=== PATIENT | female | born 1975 | race Caucasian/White ===

== ENCOUNTER 2016-07-25 17:34 | Emergency (ER) ==
[2016-07-25] MEDS ORDERED: XYLOCAINE-MPF 1% INJ ONE (21:46)
[2016-07-25] MEDS ORDERED: BOOSTRIX VACCINE IM ONE (21:46)
--- NOTE | 2016-07-25 21:54 | PROVIDER DOCUMENTATION ---
HPI-Rash/Wound/ReCheck - General Chief Complaint: Laceration[s] Stated Complaint: CUT FINGER Time Seen by Provider: 07/25/16 21:17 Source: patient Allergies/Adverse Reactions: Allergies Allergy/AdvReac Type Severity Reaction Status Date / Time No Known Allergies Allergy Verified 07/25/16 17:59 - History of Present Illness-Dermatology Nature of Presenting Problem: 41 y/o WF c/o laceration to L middle digit x 4 hours. Pt states she was preparing dinner when she accidentally cut the palmar aspect of her L middle digit at the middle phalanx. States bleeding controlled. No numbness/tingling or loss of motor function. Unknown when last tetanus. Review of Systems - Adult - REVIEW OF SYSTEMS - ADULT Constitutional: reports: no symptoms reported. denies: chills, fever Eyes: reports: no symptoms reported. denies: blurred vision, double vision Ears, Nose, Mouth & Throat: reports: no symptoms reported. denies: ear pain, nose pain Cardiovascular: reports: no symptoms reported. denies: chest pain, palpitations Respiratory: reports: no symptoms reported. denies: dyspnea on exertion, shortness of breath Gastrointestinal: reports: no symptoms reported. denies: abdominal pain, nausea , vomiting Genitourinary: reports: no symptoms reported. denies: dysuria, frequency Musculoskeletal: reports: no symptoms reported. denies: joint pain, joint swelling Integumentary: reports: see HPI, other. denies: nail changes, rash Neurological: reports: no symptoms reported. denies: numbness, paresthesia Psychiatric: reports: no symptoms reported Endocrine: reports: no symptoms reported. denies: cold intolerance, heat intolerance Hematologic/Lymphatic: reports: no symptoms reported. denies: easy bruising, prolonged bleeding Allergic/Immunologic: reports: no symptoms reported All Other Systems: Reviewed and Negative Past History - Adult - PAST MEDICAL HISTORY-ADULT Review of Records: reports: Nursing Assessment Review, Medications Reviewed - SOCIAL HISTORY Smoking: cigarettes, less than 1 pack/day Provider spent 3-5 mins advising pt. on dangers of tobacco.: Discussed manners to quit use, and f/u contacts for add'l counseling. Physical Exam-General - PHYSICAL EXAM-ADULT Initial Vital Signs Reviewed: Yes - CONSTITUTIONAL General Appearance: alert, mild distress - EYES Eyes: pink conjunctivae - HEAD, EARS, NOSE, MOUTH & THROAT HENMT: normocephalic/atraumatic - NECK Neck: normal inspection - RESPIRATORY Respiratory: no respiratory distress - CARDIOVASCULAR Cardiovascular: normal peripheral pulses, regular rate, rhythm - MUSCULOSKELETAL Extremity: normal range of motion, normal gait, normal capillary refill. negative: abnormal NV exam, pulse deficit - SKIN Integumentary: normal color, normal turgor, warm/dry, laceration(s) (1.5 cm to palmar aspect of L middle digit, distal phalanx) - NEUROLOGIC Neurologic: negative: aphasia, focal weakness, motor weakness, sensory deficit - PSYCHIATRIC Psych/Mental Status: normal mood/affect, normal thought content, normal thought process, oriented x 3 Progress - PLAN OF CARE/RESULTS Progress/Plan/Lab Results: Orders Category Date Time Status Laceration Set up DIRECTED Care 07/25/16 21:46 Active Diph,Pertuss(Acell),Tet Vac/Pf [Boostrix Vaccine] Med 07/25/16 21:46 Discontinued 0.5 ml IM .ONCE ONE Lidocaine 1% Pf [Xylocaine-Mpf 1%] Med 07/25/16 21:46 Discontinued 5 ml INJ NOW ONE Vital Signs Temp Pulse Resp BP Pulse Ox 07/25/16 23:02 112/64 07/25/16 22:50 98.6 F 89 18 95 07/25/16 17:56 97.9 F 99 H 18 118/064 99 No Known Allergies Allergy (Verified 07/25/16 17:59) Sulfamethoxazole/Trimethoprim [Bactrim Ds Tablet] 1 each PO BID #14 tablet 07/25 Discussed wound care and f/u with pt. Procedures - LACERATION/WOUND REPAIR/FB Left Distal Finger Wound Length: 1.5 cm Wound's Depth, Shape: linear Wound Explored/Foreign Body: clean Irrigated with Saline?: Yes Prepped with: Betadine Anesthetic: 1%, Lidocaine/Xylocaine Volume of Anesthetic (ml's): 2.5 Wound Debrided: minimal Wound Repaired with: Sutures Suture Size/Type: 4.0, Non-Absorbable, Nylon Number of Sutures: 3 Layer Closure?: No Sterile Dressing Applied?: Yes Splint Applied?: No Sling Applied?: No Post Procedure Neurovascular Exam: Intact Procedure Comment: Pt tolerated well Departure - Departure Time of Disposition Order: 22:41 DIAGNOSIS: Laceration Disposition: HOME 01 Certified Medical Emergency: Emergent Condition: Stable Additional Instructions: Keep wound clean and dry. Take medications as directed. Return in 10-14 days for suture removal. ED Follow Up Instructions: You have been treated by a care provider in the Emergency Department. These instructions are being provided to you so you can have an understanding of how to care for yourself upon discharge. Upon discharge from the Emergency Department, you are responsible for making arrangements for follow-up care by a physician of your choice. Take all prescribed medications as directed. Return to the Emergency Department immediately for any new or worsening symptoms. You may call the Physician Referral phone number at [phone] to obtain a list of Physicians who are taking new patients. Prescriptions: Sulfamethoxazole/Trimethoprim [Bactrim Ds Tablet] 1 each PO BID #14 tablet Referrals: Cedric Draper MD [Primary Care Provider] - Forms: Return to School/Parent Work Instructions: Laceration Care, Adult, [id number], Sulfamethoxazole; Trimethoprim, SMX-TMP tablets Attestation - Physician/ Mid-level Attestation Patient care was provided by Mid-level provider (INJECTOR ASSEMBLER/PA):: Yes Mid-level provider:: Randa Gr Mid-level documentation review:: The Mid-level provider documentation, treatment plan and medical decision making was reviewed by the physician who agrees with all treatment and medical decision making by the MLP.
[2016-07-25 23:03] VITALS: BP 112/64
== END 2016-07-25 23:03 | disposition home or self-care (01) ==
LOC: P.ED 17:34
DX: S61.213A Laceration without foreign body of left middle finger without damage to nail, initial encounter (principal); W45.8XXA Other foreign body or object entering through skin, initial encounter; F17.210 Nicotine dependence, cigarettes, uncomplicated; Z71.6 Tobacco abuse counseling; Z23 Encounter for immunization
CPT/HCPCS: 90471; 90715